=== PATIENT | male | born 1985 | race Caucasian/White ===

== ENCOUNTER 2022-03-27 21:04 | Observation (INO) | payer BC ==
[2022-03-27] MEDS ORDERED: Sodium Chloride 0.9% 1,000 ML IV ONE (22:01)
[2022-03-27] MEDS ORDERED: VANCOmycin 1.5 GM/300 ML 1.5 GM in Premix Bag 1 BAG IV ONE (22:10)
[2022-03-27] MEDS ORDERED: cefTRIAXone 2 GM in Sodium Chloride 0.9% 50 ML IV ONE (22:10)
[2022-03-27 22:38] LABS: ESTIMATED GFR 118 mL/min (>60)
[2022-03-27] MEDS ORDERED: VANCOmycin 1.5 GM/300 ML 300 ML ONE (22:49)
[2022-03-28] MEDS ORDERED: Ondansetron 4 MG/2 ML SDV IV PRN (00:42)
[2022-03-28] MEDS ORDERED: Morphine 2 MG/ML SYRINGE IVPUSH PRN (00:42)
[2022-03-28] MEDS ORDERED: Acetaminophen 500 MG Tab PO ONE (00:44)
[2022-03-28] MEDS: Saccharomyces Boulardii (Probiotic) 250 MG Cap PO SCH ×2 (01:34→09:31)
[2022-03-28] MEDS: Sodium Chloride 0.9% 1,000 ML IV SCH ×4 (01:58→16:20)
[2022-03-28] MEDS: Acetaminophen 325 MG Tab PO PRN ×2 (04:56→09:47)
[2022-03-28 06:56] LABS: ESTIMATED GFR 123 mL/min (>60)
[2022-03-28] MEDS: Sodium Chloride 0.9% 10 ML Syringe FLUSH PRN ×3 (09:34→12:20)
[2022-03-28] MEDS ORDERED: Ketorolac 30 MG/ML SDV IVPUSH SCH (10:00)
[2022-03-28] MEDS ORDERED: cefTRIAXone 1 GM Vial IVPUSH SCH (10:00)
[2022-03-28] MEDS ORDERED: VANCOmycin 1.25 GM/250 ML 1.25 GM in Premix Bag 1 BAG IV SCH (12:00)
== END 2022-03-28 18:30 ==
LOC: FB.ED 21:04 → FB.MS 03-28 00:38
PROVIDERS: ADMIT Emergency Medicine; ATTEND Family Medicine
DX: L03.113 Cellulitis of right upper limb (principal); L03.123 Acute lymphangitis of right upper limb; R65.10 Systemic inflammatory response syndrome (SIRS) of non-infectious origin without acute organ dysfunction; F17.210 Nicotine dependence, cigarettes, uncomplicated; Z88.0 Allergy status to penicillin; Z79.899 Other long term (current) drug therapy; Z20.822 Contact with and (suspected) exposure to COVID-19
CPT/HCPCS: 36415; 73130; 80048; 80053; 80307; 81001; 83605; 85025; 86140; 87040; 87635; 96361; 96365; 96366; 96367; 96375; 96376; 99284; A9270; G0378; J0696; J1885; J3370; J3490; J7030; U0002

== ENCOUNTER 2025-03-12 01:14 | Emergency (ER) | payer OTHER, BC | END 2025-03-12 01:40 | disposition home or self-care (01) | LOC: FB.ED 01:14 | DX: Z02.89 Encounter for other administrative examinations (principal); F10.129 Alcohol abuse with intoxication, unspecified; F17.210 Nicotine dependence, cigarettes, uncomplicated; Y90.9 Presence of alcohol in blood, level not specified; Z88.0 Allergy status to penicillin | CPT/HCPCS: 99282; 99284 ==